=== PATIENT | female | born 1960 | race Caucasian/White ===

== ENCOUNTER → 2017-08-13 | Outpatient (CLI) | payer OTHER | END | disposition home or self-care (01) | LOC: KCIC CT 13:01 | DX: J32.9 Chronic sinusitis, unspecified (principal) | CPT/HCPCS: 70486 ==

== ENCOUNTER → 2017-11-04 | Outpatient (CLI) | payer OTHER | END | disposition home or self-care (01) | LOC: PNCL 12:54 | DX: M50.10 Cervical disc disorder with radiculopathy, unspecified cervical region (principal); K21.9 Gastro-esophageal reflux disease without esophagitis; M85.88 Other specified disorders of bone density and structure, other site; Z85.41 Personal history of malignant neoplasm of cervix uteri | CPT/HCPCS: 99214 ==

== ENCOUNTER → 2017-11-16 | Outpatient (CLI) | payer OTHER ==
[~2017-11-16] MED LIST: IOHEXOL 180 MG/ML 10 ML VIAL.; LIDOCAINE 1% PF 2 ML VIAL.; methylPREDNISolone ACETATE 40 MG/ML VIAL.; methylPREDNISolone ACETATE 80 MG/ML VIAL.
== END ==
LOC: PNCL 10:19
DX: M50.123 Cervical disc disorder at C6-C7 level with radiculopathy (principal); K21.9 Gastro-esophageal reflux disease without esophagitis; Z85.41 Personal history of malignant neoplasm of cervix uteri; Z98.890 Other specified postprocedural states
CPT/HCPCS: 62321; J1030; J1040; Q9965

== ENCOUNTER → 2017-11-30 | Outpatient (CLI) | payer OTHER | LOC: PNCL 09:25 | DX: M50.123 Cervical disc disorder at C6-C7 level with radiculopathy (principal); K21.9 Gastro-esophageal reflux disease without esophagitis; Z98.890 Other specified postprocedural states; Z85.41 Personal history of malignant neoplasm of cervix uteri; M85.88 Other specified disorders of bone density and structure, other site; Z79.890 Hormone replacement therapy; Z79.899 Other long term (current) drug therapy | CPT/HCPCS: 62321; 62323; J1030; J1040; Q9965 ==

== ENCOUNTER → 2017-12-14 | Outpatient (CLI) | payer OTHER ==
[~2017-12-14] MED LIST changes: -LIDOCAINE 1% PF 2 ML VIAL.; +LIDOCAINE 2% PF 2ML VIAL.
== END | disposition home or self-care (01) ==
LOC: PNCL 09:26
DX: M50.123 Cervical disc disorder at C6-C7 level with radiculopathy (principal); Z79.899 Other long term (current) drug therapy; K21.9 Gastro-esophageal reflux disease without esophagitis; Z98.890 Other specified postprocedural states; Z85.41 Personal history of malignant neoplasm of cervix uteri
CPT/HCPCS: 62321; J1030; J1040; J2001; Q9965

== ENCOUNTER → 2018-10-20 | Outpatient (CLI) | payer OTHER ==
[~2018-10-20] MED LIST changes: +CETI10TA22 PO; +ESTR1TAB15 PO; +FLUO20CA16 PO; -IOHEXOL 180 MG/ML 10 ML VIAL.; -LIDOCAINE 2% PF 2ML VIAL.; +MONT10TA9 PO; +MULT1TAB52 PO; +OMEG-57 PO; +OMEP20CA10 PO; +RANI300C PO; -methylPREDNISolone ACETATE 40 MG/ML VIAL.; -methylPREDNISolone ACETATE 80 MG/ML VIAL.
--- NOTE | 2018-10-20 17:19 | KCIC ---
MR of the left shoulder HISTORY: Left shoulder pain for over 2 months. TECHNIQUE: Routine multiplanar sequences are obtained. FINDINGS: The acromioclavicular joint is mildly degenerative. No evidence of rotator cuff tear. No significant subdeltoid bursal effusion. No significant joint effusion. No definite labral tear is seen. Biceps tendon intact. No bone destruction or acute fracture. No acute soft tissue abnormality. IMPRESSION: 1. Mild acromioclavicular joint degenerative change with small undersurface osteophyte. 2. No evidence of rotator cuff tear or other internal derangement. Electronically signed by: Carlin Elizondo MD (10/20/2018 5:16 PM) [facility]
== END | disposition home or self-care (01) ==
LOC: KCIC MRI 15:59
PROVIDERS: ATTEND Family Medicine
DX: M19.012 Primary osteoarthritis, left shoulder (principal); M25.712 Osteophyte, left shoulder
CPT/HCPCS: 73221

== ENCOUNTER → 2020-01-11 | Outpatient (CLI) | payer OTHER ==
[~2020-01-11] MED LIST changes: +CALC500T54 PO; -CETI10TA22 PO; +CETI10TA24 PO; +CRESTOR40 MG PO; +ESTR-113 PO; -ESTR1TAB15 PO; +ESTR50GE TP; +LYSI500T8 PO; +MONT10TA49 PO; -MONT10TA9 PO; +MULT-445 PO; -MULT1TAB52 PO; -OMEP20CA10 PO; +OMEP20CA16 PO; +vitamin d
--- NOTE | 2020-01-11 14:30 | PDOC ---
Progress Note - Pain Clinic Date of Service: DOS: DATE: 01/11/20 TIME: 14:23 Diagnosis: Dx: Cervical radiculopathy with cervical degenerative disc disease History or Present Illness: HPI: 59-year-old female returns for follow-up status post cervical epidural straight injections x3 last seen December 14, 2017 P patient reports near 100% improvement for almost 2 years patient ports pain returning now base of the neck and shoulders upper extremities bilaterally right equal to left. Patient reports is becoming more noticeable with doing work activities reaching above her head with her hands repetitive motions lifting items patient ports no loss of motor f unction no no significant weakness no dropping of items routinely with the upper extremities. Patient rates her pain as a 6 on scale 10 is worse over the past week for an average to its least is a 2 today patient which is aching sharp dull pain more constant the base the neck and shoulders upper extremities again without loss of motor function. Patient reports it generally does not awaken her from sleep at night Physical Exam: VS: Pressure is 122/79 pulse 62 respirations 18 temperature 98.2 F 5 feet 5 inches weight 139 pounds PE: PHYSICAL EXAMINATION: GENERAL: The patient is awake, alert, oriented, appropriate, very pleasant demeanor HEENT: Shows normocephalic, atraumatic. Extraocular movements are intact and symmetrical. Oral cavity: Mucous membranes moist and pink. NECK: Shows anterior throat supple without palpable lymphadenopathy noted. Swallow reflex symmetrical. CHEST: Shows normal on inspection. Breath sounds are clear bilaterally. HEART: Shows S1, S2 clear. No murmurs auscultated. ABDOMEN: Soft, nontender, nondistended. No palpable organomegaly is noted. No rebound or guarding demonstrated. BACK: Shows spine grossly in the midline. Normal-appearing cervical lordotic curvature, paraspinous muscles show symmetrical on inspection of the posterior cervical distribution with palpation some mild tenderness the inferior aspect the cervical paraspinous muscles are especially into the inferior aspect and these severe superior medial distribution of the trapezius musculature bilaterally. Musculature is symmetrical without trigger points without radiation. Patient is full rotation motion cervical spine both laterally as well as extension flexion without significant increase in pain with some mild pain with extension only. There is slightly increased thoracic kyphosis, some minor flattening of the lumbar lordotic curvature. Lumbar paraspinous muscles show symmetrical on inspection, on palpation shows some moderate tenderness diffusely without specific trigger points, without radiation of pain. The patient has good rotational motion of the lumbar spine, both laterally as well as extension and flexion without significant difficulty. No tenderness over the spinous processes, sacrum or sacroiliac regions. EXTREMITIES: Upper extremities show deep tendon reflexes 2+ in the biceps and triceps tendons. Motor exam is 5 on a scale of 5 with right scale installer strength bicep and tricep flexion and 5/5 on the left. Peripheral pulses are 2+ radial. No peripheral edema is noted bilaterally. Upper extremities are warm and dry to touch, equal in color and appearance. Shoulder shrug is strong and intact without loss of strength on resistance as is abduction of the shoulder 90 degrees without loss of strength on resistance with minor pain reported the base the neck and the superior medial trapezius bilaterally. SKIN: Shows warm and dry, good turgor. No edema. No sores, rashes or bruising throughout. Procedure: Procedure: None Medication Injected: Med Injected: None Condition at Discharge: Condition at Discharge: Options discussed with the patient. Patient will chart reviewed his current medication regimen updated current review of systems updated today as well. We will preauthorize patient for a cervical epidural steroid injections did very well with these in the past near [facility] and improvement for almost 2 years. Patient symptoms are very similar to that which she had last visit and we will preauthorize patient for cervical epidural steroid just at the C6-7 level using a translaminar approach for clinical C6-7 radiculopathy bilaterally. Meantime will try Medrol Dosepak patient given instructions with side effects aware with the medication and will follow-up in approximately 1 week after preauthorization we will plan on procedure at that time. BALBIR SALGADO MD Jan 11, 2020 14:30
== END | disposition home or self-care (01) ==
LOC: PNCL 13:30
PROVIDERS: ATTEND Anesthesiology
DX: M50.123 Cervical disc disorder at C6-C7 level with radiculopathy (principal); Z79.899 Other long term (current) drug therapy
CPT/HCPCS: G0463

== ENCOUNTER → 2020-01-25 | Outpatient (CLI) | payer OTHER ==
[~2020-01-25] MED LIST changes: -CETI10TA24 PO; +CETI10TA74 PO; +IOHEXOL 180 MG/ML 10 ML VIAL. ONE; +methylPREDNISolone ACETATE 40 MG/ML VIAL. ONE; +methylPREDNISolone ACETATE 80 MG/ML VIAL. ONE
--- NOTE | 2020-01-25 14:47 | PDOC ---
Progress Note - Pain Clinic Date of Service: DOS: DATE: 01/25/20 TIME: 14:41 Diagnosis: Dx: Cervical radiculopathy with cervical degenerative disc disease History or Present Illness: HPI: 59-year-old female returns follow-up status post initial evaluation preauthorization for cervical epidural steroid injection. Patient reports still significant pain base the neck and shoulders bilaterally patient reports no new motor or sensory deficits but still pain with the repetitive motions lifting items reaching over her head with her hands patient reports the pain is a 6 on scale 10 is worse over the past week 3 on average and a to its least is a 3 today. Patient scribes aching and sharp tingling burning at times and constant the base the neck and shoulders. Patient reports no loss of motor function but significant fatigability the upper extremities. Reports it does not awaken her from sleep at night. Patient reports no new motor or sensory deficits or other complaints. Physical Exam: VS: Blood pressure is 106/71 pulse 73 respirations 18 temperature 98.2 F height is 5 feet 5 inches weight is 137lbs. PE: PHYSICAL EXAMINATION: GENERAL: The patient is awake, alert, oriented, appropriate, very pleasant demeanor HEENT: Shows normocephalic, atraumatic. Extraocular movements are intact and symmetrical. NECK: Shows anterior throat supple without palpable lymphadenopathy noted. Swallow reflex symmetrical. CHEST: Shows normal on inspection. Breath sounds are clear bilaterally. HEART: Shows S1, S2 clear. No murmurs auscultated. ABDOMEN: Soft, nontender, nondistended. No palpable organomegaly is noted. No rebound or guarding demonstrated. BACK: Shows spine grossly in the midline. Normal-appearing cervical lordotic curvature, patient has good rotation motion cervical spine both laterally as well as extension flexion without significant increase in pain. Cervical paraspinous muscles show symmetrical on inspection with palpation some mild tenderness the inferior aspect the cervical paraspinous musculature bilaterally into the superior medial trapezius but without asymmetry trigger points or trigger point tenderness. There is slightly increased thoracic kyphosis, some minor flattening of the lumbar lordotic curvature but without specific trigger points, without radiation of pain. The patient has good rotational motion of the lumbar spine, both laterally as well as extension and flexion without significant difficulty. EXTREMITIES: Upper extremities show deep tendon reflexes 2+ in the biceps and triceps tendons. Motor exam is 5 on a scale of 5 with right turpentine distiller, biceps triceps flexion and 5/5 on the left. Peripheral pulses are 2+ posterior radial l. No peripheral edema is noted bilaterally. Upper extremities are warm and dry to touch, equal in color and appearance. SKIN: Shows warm and dry, good turgor. No edema. No sores, rashes or bruising throughout. Procedure: Procedure: Options were discussed with the patient. Patient's old chart was reviewed as her current medication regimen updated current review of systems updated today as well. We will proceed with a cervical epidural steroid injection today with fluoroscopic guidance. Risks were discussed including but not limited to: Bleeding, infection, possibility of epidural hematoma and subsequent neurological compromise, dural puncture, headaches, spinal cord and/or nerve da mage, side effects of steroid medication, and poor results regarding pain control. Patient understands wished to proceed. Patient return to clinic in possibly 2 weeks for follow-up. Was counseled as to activity level, return appointment, as well as side effects to be aware of. Medication Injected: Med Injected: Procedure cervical epidural steroid injection at the C6-7 level, using local anesthetic under sterile prep and drape using C-arm fluoroscopic guidance under local anesthesia medications injected ; 120 mg Depo-Medrol + 5 mL normal saline and 2 mL contrast; condition at discharge is stable patient tolerated procedure well. and had no complications Condition at Discharge: Condition at Discharge: Condition at discharge stable patient on the procedure well had no complications. BALBIR SALGADO MD Jan 25, 2020 14:47
== END | disposition home or self-care (01) ==
LOC: PNCL 14:00
PROVIDERS: ATTEND Anesthesiology
DX: M50.123 Cervical disc disorder at C6-C7 level with radiculopathy (principal); Z79.899 Other long term (current) drug therapy
CPT/HCPCS: 62321; J1030; J1040; Q9965